=== PATIENT | male | born 1960 | race Caucasian/White ===

== ENCOUNTER 2024-07-09 10:38 | Outpatient (OUT) | payer OTHER, SELFPAY ==
[2024-07-09 11:00] LABS: Basophils Absolute Auto 0.1 10^3/uL (0.0-0.1); Eosinophils Absolute Auto 0.2 10^3/uL (0.0-0.7); Eosinophils Percent Auto 2.7 % (0.9-7.0); Hematocrit 47.8 % (42.0-54.0); Hemoglobin 15.7 g/dL (14.0-18.0); Immature Granulocytes Abs Auto 0.02 10^3/uL (0.00-0.03); Immature Granulocytes Pct Auto 0.2 % (0.0-0.5); Lymphocytes Absolute Auto 1.6 10^3/uL (1.2-3.8); Lymphocytes Percent Auto 19.8 % (20.5-60.0); Mean Corpuscular HGB Conc 32.8 g/dL (29.9-35.2); Mean Corpuscular Hemoglobin 30.4 pg (25.9-34.0); Mean Corpuscular Volume 92.6 fL (80.0-94.0); Monocytes Absolute Auto 0.5 10^3/uL (0.3-0.8); Monocytes Percent Auto 5.8 % (1.7-12.0); Neutrophils Absolute Auto 5.8 10^3/uL (1.4-6.5); Neutrophils Percent Auto 70.5 % (43.0-75.0); Platelet Count 253 10^3/uL (150-450); Red Blood Count 5.16 10^6/uL (4.70-6.10); Red Cell Distribution Width 12.6 % (11.0-15.0); White Blood Count 8.3 10^3/uL (4.0-11.0)
[2024-07-09 12:06] LABS: Alanine Aminotransferase 22 U/L (16-63); Albumin Level 3.7 g/dL (3.4-5.0); Alkaline Phosphatase 87 U/L (46-116); Anion Gap 8.4; Aspartate Amino Transferase 11 U/L (15-37); Bilirubin Total 0.5 mg/dL (0.2-1.0); Calcium 9.1 mg/dL (8.5-10.1); Carbon Dioxide 29.8 mmol/L (21.0-32.0); Chloride 103 mmol/L (98-107); Chol HDL Ratio 3.1; Cholesterol 174 mg/dL (<=200); Estimated GFR (African America >60 (>=60 mL/min/1.73m^2); Estimated GFR (Non-African Ame >60 (>=60 mL/min/1.73m^2); Free T3 3.07 pg/mL (2.18-3.98); Globulin 3.6 g/dL; Glucose 93 mg/dL (74-106); HDL Cholesterol 56 mg/dL (40-60); LDL Cholesterol Calculated 105.2 mg/dL; Potassium 4.2 mmol/L (3.5-5.1); Sodium 137 mmol/L (136-145); Thyroid Stimulating Hormone 1.775 uIU/mL (0.358-3.740); Total Protein 7.3 g/dL (6.4-8.2); Triglycerides 64 mg/dL (<=150); VLDL CHOLESTEROL 12.8 mg/dL
[2024-07-09 12:17] LABS: Prostate Specific Antigen Scrn 2.57 ng/mL (<=4.00)
[2024-07-09 12:20] LABS: Estimated Average Glucose 111 mg/dL; Glycohemoglobin A1C 5.5 % (4.5-6.2)
== END 2024-07-09 10:39 | disposition home or self-care (01) ==
LOC: LAB 10:43
PROVIDERS: PCP Family Medicine; Visit Provider Family Medicine
DX: Z00.00 Encounter for general adult medical examination without abnormal findings (principal); R53.83 Other fatigue; E78.5 Hyperlipidemia, unspecified; R73.09 Other abnormal glucose; Z12.5 Encounter for screening for malignant neoplasm of prostate
CPT/HCPCS: 36415; 80053; 80061; 83036; 84436; 84443; 84481; 85025; G0103

== ENCOUNTER 2024-09-01 09:11 | Emergency (ER) | payer OTHER, SELFPAY ==
[2024-09-01 09:20] VITALS: BP 109/69; O2SAT 93
--- OUTSIDE RECORDS SUMMARY | 2024-09-01 09:22 | XMS_ITS | CCD ---
Author Organization [facility] Care Team Providers Care Transplant Case Manager Name Role Phone PHYSICIAN, DEFAULT Unavailable Unavailable PHYSICIAN, DEFAULT Unavailable Unavailable HOY, DR MILLER Primary Care Unavailable NILL, DR DAVIS Admitting Unavailable NILL, DR DAVIS Consulting Unavailable NILL, DR DAVIS Attending Unavailable LUIS, JOSIAS Consulting Unavailable HOY, DR MILLER Primary Care Unavailable HOY, DR MILLER Attending Unavailable HOY, DR MILLER Admitting Unavailable HOY, DR MILLER Primary Care Unavailable HOY, DR MILLER Consulting Unavailable HOY, DR MILLER Attending Unavailable HOY, DR MILLER Referring Unavailable HOY, DR MILLER Admitting Unavailable HOY, DR MILLER Primary Care Unavailable NILL, DR DAVIS Consulting Unavailable NILL, DR DAVIS Attending Unavailable NILL, DR DAVIS Admitting Unavailable Problems Active Problems Problem Classification Problem Date Documented Da te Episodic/Chronic Anxiety disorders (1 source) Other specified anxiety disorders; Translations: [OTHER SPECIFIED ANXIETY DISORDERS] Onset: 05-23-2021 Chronic Chronic obstructive pulmonary disease and bronchiectasis (1 source) Chronic obstructive pulmonary disease, unspecified; Translations: [COPD UNSPECIFIED] Onset: 05-23-2021 Chronic Other hereditary and degenerative nervous system conditions (1 source) Restless legs syndrome; Translations: [RESTLESS LEGS SYNDROME] Onset: 05-23-2021 Chronic Substance-related disorders (1 source) Nicotine dependence, cigarettes, uncomplicated; Translations: [NICOTINE DEPEND CIGARETTES UNCOMP] Onset: 05-23-2021 Chronic Unclassified (1 source) CONTACT W/AND (SUSP) EXPOS COVID-19; Translations: [CONTACT W/AND (SUSP) EXPOS COVID-19] Onset: 05-16-2021 Past or Other Problems Problem Classification Problem Date Documented Da te Episodic/Chronic Other aftercare (1 source) Other halfway (current) drug therapy; Translations: [OTH PENITENTIARY CURRENT DRUG THERAPY] Onset: 05-23-2021 Episodic Other and unspecified benign neoplasm (3 sources) Personal history of colonic polyps; Translations: [PERSONAL HISTORY OF COLONIC POLYPS] Onset: 05-16-2021 Episodic Other and unspecified benign neoplasm (1 source) Benign neoplasm of transverse colon; Translations: [BENIGN NEOPLASM OF TRANSVERSE COLON] Onset: 05-23-2021 Episodic Other screening for suspected conditions (not mental disorders or infectious disease) (1 source) Encounter for screening for malignant neoplasm of prostate; Translations: [ENC SCREEN MALIG NEOPLASM PROSTATE] Onset: 05-09-2021 Episodic Results Test Name Value Interpretation Reference Range Facil ity Reminderson 05-22-2021 Reminders - From: Andree Perez LPN To: N - Clinical; Sent: 05/22/2021 13:15:11 EDT Show up: 04/16/2026 08:00:00 EDT Subject: colonoscopy recall Due Date/Time: 05/16/2026 08:00:00 EDT Reminder/Recall Patient is due for colonoscopy 05/16/2026 due to history of tubular adenomas. Normal [facility] Outside Colonoscopyon 2020 Outside Colonoscopy [id number] #1.00CD:127 Normal [facility] Pathology Noteon 05-21-2021 Pathology Note [id number]#1.00CD:127 Normal [facility] Facesheeton 05-14-2021 Facesheet [id number] #1.00CD:127 Normal [facility] Lab Reportson 05-14-2021 Lab Reports [id number] #1.00CD:127 Normal [facility] Covid-19 PCR (CVDTB)on SARS-CoV-2 (COVID-19) RNA CHRISSY+probe Ql (Unsp spec) Not detected Normal NOT DETECTED [facility] Comment on above: Result Comment: This test is not yet approved or cleared by the [place] FDA. When there are no FDA-approved or cleared tests available, and other criteria are met, FDA can make tests available under an emergency access mechanism called an Emergency Use Authorization (EUA). The EUA for this test is supported by the [place] of Health and Human Service's (HHS's) declaration that circumstances exist to justify the emergency use of in vitro diagnostics for the detection and/or diagnosis of the virus that causes COVID-19. This EUA will remain in effect (meaning this test can be used) for the duration of the COVID-19 declaration justifying emergency of IVDs, unless it is terminated or revoked by FDA (after which the test may no longer be used). When diagnostic testing is negative, the possibility of a false negative should be considered in the context of a patient's recent exposures and the presence of clinical signs and symptoms consistent with SARS-CoV-2. Performed By: #### [facility] #### [facility] [address] [address] [address] Kris Marie [facility] Letter [facility] May 11, 2021 Ranulfo Morfin, [address] [place] [address] [place] [address] Re: ANA JOHNSON Date of : 1960 Thank you for your referral of Ana Johnson who was seen on consultation on 05/08/2021 for colonoscopy. I have enclosed my consultation note for your review. I will be happy to follow Ana. Sincerely, Ramon Burnett MD General Surgery [facility] Formson 05-10-2021 Forms [id number]#1.00CD:127 [facility] Ambulatory Clinical Summaryo n 05-08-2021 Ambulatory Clinical Summary {[id number] [facility] Physician Referralon 021 Physician Referral [id number] #1.00CD:127 [facility] INSULINon 05-03-2021 Insulin 8.4 uIU/mL Normal 2.6-24.9 [facility] Comment on above: Performed By: #### I NSULIN #### [facility] [address] [place] [address] Dr. Kris Marie CBC AUTO DIFFon 05-02-2021 BASO # 0.1 103/ul Normal 0.0-0.[address] [facility] Comment on above: Performed By: #### C BC #### [facility] [address] [place] [address] Dr. Kris Marie Basophils/100 WBC (Bld) 1.1 % Normal 0.2-2.0 [facility] Comment on above: Performed By: #### C BC #### [facility] [address] [place] [address] Dr. Kris Marie EO # 0.2 103/ul Normal 0.0-0.[address] [facility] Comment on above: Performed By: #### C BC #### [facility] [address] [place] [address] Dr. Kris Marie Eosinophils/100 WBC (Bld) 2.9 % Normal 0.9-7.[address] [facility] Comment on above: Performed By: #### C BC #### [facility] [address] [place] [address] Dr. Kris Marie Erythrocyte distribution width (RBC) [Ratio] 12.9 % Normal 11.0-15.[address] [facility] Comment on above: Performed By: #### C BC #### [facility] [address] [place] [address] Dr. Kris Marie Hematocrit (Bld) [Volume fraction] 47.4 % Normal 42.0-54.0 [facility] Comment on above: Performed By: #### C BC #### [facility] [address] [place] [address] Dr. Kris Marie Hemoglobin (Bld) [Mass/Vol] 15.8 g/dL Normal 14.0-18.[address] [facility] Comment on above: Performed By: #### C BC #### [facility] [address] [place] [address] Dr. Kris Marie IG # 0.02 10e3/ul Normal 0.00-0.[address] [facility] Comment on above: Performed By: #### C BC #### [facility] [address] [place] [address] Dr. Kris Marie IG % 0.3 % Normal 0.0-0.[address] [facility] Comment on above: Performed By: #### C BC #### [facility] [address] [place] [address] Dr. Kris Marie LYMPH # 1.6 103/ul Normal 1.2-3.[address] [facility] Comment on above: Performed By: #### C BC #### [facility] [address] [place] [address] Dr. Kris Marie Lymphocytes/100 WBC (Bld) 22.8 % Normal 20.5-60.[address] [facility] Comment on above: Performed By: #### C BC #### [facility] [address] [place] [address] Dr. Kris Marie MANUAL DIFF REQ NO Normal [facility] Comment on above: Performed By: #### C BC #### [facility] [address] [place] [address] Dr. Kris Marie MCH (RBC) [Entitic mass] 30.7 pg Normal 25.9-34.[address] [facility] Comment on above: Performed By: #### C BC #### [facility] [address] [place] [address] Dr. Kris Marie MCHC (RBC) [Mass/Vol] 33.3 g/dL Normal 29.9-35.[address] [facility] Comment on above: Performed By: #### C BC #### [facility] [address] [place] [address] Dr. Kris Marie MCV (RBC) [Entitic vol] 92.2 fL Normal 80.0-94.[address] [facility] Comment on above: Performed By: #### C BC #### [facility] [address] [place] [address] Dr. Kris Marei MONO # 0.7 103/ul Normal 0.3-0.[address] [facility] Comment on above: Performed By: #### C BC #### [facility] [address] [place] [address] Dr. Kris Marie Monocytes/100 WBC (Bld) 10.3 % Normal 1.7-12.[address] [facility] Comment on above: Performed By: #### C BC #### [facility] [address] [place] [address] Dr. Kris Marie NEUT # 4.5 103/ul Normal 1.4-6.[address] [facility] Comment on above: Performed By: #### C BC #### [facility] [address] [place] [address] Dr. Kris Marie Neutrophils/100 WBC (Bld) 62.6 % Normal 43.0-75.[address] [facility] Comment on above: Performed By: #### C BC #### [facility] [address] [place] [address] Dr. Kris Maire Platelet mean volume (Bld) [Entitic vol] 8.8 fL Critically low 9.5-13.5 [facility] Comment on above: Performed By: #### C BC #### [facility] [address] [place] [address] Dr. Kris Marie PLT 284 103/ul Normal 150-450 [facility] Comment on above: Performed By: #### C BC #### [facility] [address] [place] [address] Dr. Kris Marie RBC 5.14 106/ul Normal 4.70-6.10 [facility] Comment on above: Performed By: #### C BC #### [facility] [address] [place] [address] Dr. Kris Marie WBC 7.2 103/ul Normal 4.0-11.0 [facility] Comment on above: Performed By: #### C BC #### [facility] [address] [place] [address] Dr. Kris Marie GLYCOHEMOGLOBIN A1Con 2020 ADA RECOMMENDATION ADA THERAPEUTIC TARGET 6.0 - 7.0 ACTION SUGGESTED > 7.[address] [facility] Comment on above: Performed By: #### A 1C #### [facility] [address] [address] [address] Kris Marie Glucose [Mass/Vol] 105 mg/dL Normal [facility] Comment on above: Performed By: #### A 1C #### [facility] [address] [address] [address] Kris Marie HbA1c (Bld) [Mass fraction] 5.3 % Normal <=6.[address] [facility] Comment on above: Performed By: #### A 1C #### [facility] [address] [address] [address] Kris Marie LIPID PROFILEon 05-02-2021 CHOL-HDL RATIO NORM SEE BELOW Normal [facility] Comment on above: Result Comment: 3.3 - 4.4 LOW RISK 4.4 - 7.1 AVERAGE RISK 7.1 - 11.0 MODERATE RISK >11.0 HIGH RISK Performed By: #### C MP, URIC, LIPID #### [facility] [address] [place] [address] Dr. Kris Marie Cholesterol [Mass/Vol] 187 mg/dL Normal <=[address] [facility] Comment on above: Performed By: #### C MP, URIC, LIPID #### [facility] [address] [place] [address] Dr. Kris Marie Cholesterol in HDL [Mass/Vol] 57 mg/dL Normal [facility] Comment on above: Performed By: #### C MP, URIC, LIPID #### [facility] [address] [address] [address] Kris Marie Cholesterol in LDL [Mass/Vol] 115.6 mg/dL Normal [facility] Comment on above: Performed By: #### C MP, URIC, LIPID #### [facility] [address] [place] [address] Dr. Kris Marie Cholesterol.total/Cho lesterol in HDL [Mass ratio] 3.3 {ratio} Normal [facility] Comment on above: Performed By: #### C MP, URIC, LIPID #### [facility] [address] [address] [address] Kris Marie HDL NORMAL > or = 60 mg/dl - LOW CARDIOVASCULAR RISK <40 mg/dl - HIGH CARDIOVASCULAR RISK Normal [facility] Comment on above: Performed By: #### C MP, URIC, LIPID #### [facility] [address] [address] [address] Kris Marie LDL CALC NORMAL SEE BELOW Normal [facility] Comment on above: Result Comment: <100 mg/dl OPTIMAL 100 - 129 mg/dl NEAR OR ABOVE OPTIMAL 130 - 159 mg/dl BORDERLINE HIGH 160 - 189 mg/dl HIGH >190 mg/dl VERY HIGH Performed By: #### C MP, URIC, LIPID #### [facility] [address] [address] [address] Kris Marie Triglyceride [Mass/Vol] 72 mg/dL Normal <=[address] [facility] Comment on above: Performed By: #### C MP, URIC, LIPID #### [facility] [address] [address] [address] Kris Marie VLDL CALC 14.4 mg/dL Normal [facility] Comment on above: Performed By: #### C MP, URIC, LIPID #### [facility] [address] [place] [address] Dr. Kris Marie PROF 14(COMP METB)on 021 Albumin [Mass/Vol] 4.3 g/dL Normal 3.5-5.0 [facility] Comment on above: Performed By: #### C MP, URIC, LIPID #### [facility] [address] [place] [address] Dr. Kris Marie Albumin/Globulin [Mass ratio] 1.1 {ratio} Normal [facility] Comment on above: Performed By: #### C MP, URIC, LIPID #### [facility] [address] [place] [address] Dr. Kris Marie ALP [Catalytic activity/Vol] 84 U/L Normal 38-[address] [facility] Comment on above: Performed By: #### C MP, URIC, LIPID #### [facility] [address] [place] [address] Dr. Kris Marie ALT [Catalytic activity/Vol] 22 U/L Normal 21-[address] [facility] Comment on above: Performed By: #### C MP, URIC, LIPID #### [facility] [address] [place] [address] Dr. Kris Marie Anion gap [Moles/Vol] 13.2 mmol/L Normal [facility] Comment on above: Performed By: #### C MP, URIC, LIPID #### [facility] [address] [place] [address] Dr. Kris Marie AST [Catalytic activity/Vol] 15 U/L Critically low 17-[address] [facility] Comment on above: Performed By: #### C MP, URIC, LIPID #### [facility] [address] [place] [address] Dr. Kris Marie Bilirubin [Mass/Vol] 0.5 mg/dL Normal 0.2-1.[address] [facility] Comment on above: Performed By: #### C MP, URIC, LIPID #### [facility] [address] [place] [address] Dr. Kris Marie Calcium [Mass/Vol] 9.7 mg/dL Normal 8.4-10.2 [facility] Comment on above: Performed By: #### C MP, URIC, LIPID #### [facility] [address] [place] [address] Dr. Kris Marie Chloride [Moles/Vol] 102 mmol/L Normal 98-[address] [facility] Comment on above: Performed By: #### C MP, URIC, LIPID #### [facility] [address] [place] [address] Dr. Kris Marie CO2 [Moles/Vol] 28.4 mmol/L Normal 22.0-30.0 [facility] Comment on above: Performed By: #### C MP, URIC, LIPID #### [facility] [address] [place] [address] Dr. Kris Marie Creatinine [Mass/Vol] 1.02 mg/dL Normal 0.66-1.[address] [facility] Comment on above: Performed By: #### C MP, URIC, LIPID #### [facility] [address] [address] [address] Kris Marie EGFR-AF SAMOAN >60 Normal >=60 [facility] Comment on above: Performed By: #### C MP, URIC, LIPID #### [facility] [address] [address] [address] Kris Marie EGFR-NON AF SAMOAN >60 Normal >=60 [facility] Comment on above: Performed By: #### C MP, URIC, LIPID #### [facility] [address] [address] [address] Kris Marie Globulin (S) [Mass/Vol] 3.9 g/dL Normal [facility] Comment on above: Performed By: #### C MP, URIC, LIPID #### [facility] [address] [address] [address] Kris Marie Glucose [Mass/Vol] 104 mg/dL Normal 74-106 [facility] Comment on above: Performed By: #### C MP, URIC, LIPID #### [facility] [address] [address] [address] Kris Marie Potassium [Moles/Vol] 4.6 mmol/L Normal 3.4-5.[address] [facility] Comment on above: Performed By: #### C MP, URIC, LIPID #### [facility] [address] [address] [address] Kris Marie Protein [Mass/Vol] 8.2 g/dL Normal 6.1-8.2 [facility] Comment on above: Performed By: #### C MP, URIC, LIPID #### [facility] [address] [address] [address] Kris Marie Sodium [Moles/Vol] 139 mmol/L Normal 137-145 [facility] Comment on above: Performed By: #### C MP, URIC, LIPID #### [facility] [address] [address] [address] Kris Marie Urea nitrogen [Mass/Vol] 19.0 mg/dL Normal 9.0-20.[address] [facility] Comment on above: Performed By: #### C MP, URIC, LIPID #### [facility] [address] [place], [place] [address] Dr. Kris Marie Urea nitrogen/Creatinine [Mass ratio] 18.6 mg/mg Normal [facility] Comment on above: Performed By: #### C MP, URIC, LIPID #### [facility] [address] [place], [place] [address] Dr. Kris Marie URIC ACID SERUMon 05-02-2021 Urate [Mass/Vol] 6.1 mg/dL Normal 3.5-8.5 [facility] Comment on above: Performed By: #### C MP, URIC, LIPID #### [facility] [address] [id number] Kris Marie Encounters Encounter Date Encounter Type Care Provider Facility Start: 04-12-[address] RANULFO MORFIN Facility :[facility] Start: 05-16-2021 Encounter for prepro cedural laboratory examination DR RAMON BURNETT [facility] Start: 05-16-2021 End: 05-16-[address] RANULFO MORFNI Facility:[facility] Start: 05-12-2021 End: 05-13-[address] RANULFO MORFIN Facility:[facility] Start: 05-12-2021 End: 05-13-2021 Encounter for preprocedural laboratory examination DR RANULFO MORFIN Facility:[facility] Start: 05-09-2021 Encounter for genera l adult medical examination without abnormal findings DR RANULFO MORFIN [facility] Start: 05-02-2021 End: 05-03-[address] RANULFO MORFIN Facility:[facility] Start: 05-02-2021 End: 05-03-2021 Encounter for general adult medical examination without abnormal findings DR RANULFO MORFIN Facility:[facility] Start: 03-19-2017 End: 03-20-2017 Ambulatory DEFAULT PHYSICIAN Facility:[facility] Procedures Date Procedure Procedure Detail Performing Clinician Start: 05-02-[address] VASU MORFIN Comment on above: Performed By: #### P SASC #### [facility] [address] [address] [address] Kris Marie Payers Date Payer Category Payer Unknown [id number] 2.16.84 [id number] 1960 Unknown [id number] 2.16.84 [id number] 1960 Unknown [id number] 2.16.84 [id number] 1960 Unknown [id number] 2.16.84 [id number] 1957 Self-pay [id number] 1957 Unknown [id number] Unknown Clinical Note 05-16-2021 Note Date & Type Note Facility 05-16-2021 Note OPERATIVE NOTE OPERATION DATE: 05/16/2021 PREOPERATIVE DIAGNOSIS: Personal history of colon polyps. POSTOPERATIVE DIAGNOSIS: Colon polyps x3 transverse colon, sigmoid and rectal. PROCEDURE NAME: Colonoscopy to cecum with cold snare polypectomy x3. SURGEON: Ramon Burnett MD ANESTHESIA: Monitored anesthesia care. ESTIMATED BLOOD LOSS: Less than 2 mL. INDICATIONS AND CONSENT: Patient is a 60-year-old male with personal history of colon polyps. Indications, risks, benefits and alternatives of proceeding with colonoscopy were explained extensively to the patient including the risks of bleeding, colon perforation or anesthetic complications. All of his questions were answered. Informed consent was obtained. PROCEDURE: Patient brought to the operating room and placed in the left lateral decubitus position. Monitored anesthesia care was provided. Rectal exam was performed which showed no masses or blood. The scope was inserted into the anal canal under direct visualization and was advanced. With the aid of abdominal compression, it was advanced to the cecum where cecal markings were clearly identified. There was noted some liquid stool and mucus throughout the colon that was partially irrigated clear but did obscure some of the mucosal lining. Upon withdrawal of the scope, mucosal surfaces were carefully examined. There was noted be a 4 mm sessile polyp in the transverse colon that was removed with cold snare but it was not retrieved. In the sigmoid colon, there was a 7 mm sessile polyp that was friable. This was removed with cold snare within good hemostasis. Within the rectum, there was a 3 mm polyp that was removed with cold snare as well. The scope was retroflexed in the anal canal. There were noted to be some prominent rectal veins. No significant hemorrhoidal disease. The scope was then withdrawn. Patient tolerated the procedure well and was sent to Recovery Room in good condition. cc: Ranulfo Morfin MD [facility] Signed and Approved by: DR RAMON BURENTT . 05/20/2021 12:48:00 [facility] Clinical Note 05-08-2021 Note Date & Type Note Facility 05-08-2021 Note Chief Complaint consultation for colonoscopy HPI Staff 60 year old male presents on consultation from Dr. Morfin for colonoscopy. History of colon polyps. Believes last colonoscopy was completed 5-6 years ago at [facility]. Denies abdominal or rectal pain. No rectal bleeding or change in bowel habits. Denies nausea or vomiting. No unexplained weight loss. No known family history of colon cancer. History of Present Illness 60 yo male with h/o COPD, cervical disc disease; referred for surveillance colonoscopy due to personal h/o colon polyps. last colonoscopy reportedly 6-7 years ago at [facility]; denies change in bms or blood in stools; on baby asa daily, no NSAID use, no SBE prophylaxis; no fmhx of GI malignancy or IBD. smokes 1/2 ppd. Review of Systems PHQ Score Initial Depression Screen Score: 0 ROS - Provider Constitutional: no fever, no sweats, no weight loss. Eyes: no glasses, no blurred vision, no visual loss. ENMT: no dentures, no hoarseness, no swallowing difficulties, no hearing loss, no ear infection(s), no nose bleeds. Cardiovascular: normal blood pressure, no chest pain, regular heartbeat, no heart murmur. Respiratory: no shortness of breath, no cough, no asthma, no wheezing. Gastrointestinal: no nausea, no vomiting, no diarrhea, no constipation, no blood in stool, no change in bowel habits, no abdominal pain, no hepatitis. Genitourinary: no kidney stones, no urine infection, no dysuria. Musculoskeletal: no pain, no weakness. Skin: no changing moles, no rash, no skin lumps. Neurologic: no seizures, no epilepsy, no headache. Psychiatric: no emotional or psychiatric problem. Heme/Lymph: no bleeding problems, no anemia, no blood clots, no transfusions. Allergy/Immunologic: no swollen lymph nodes/glands, no IV drug abuse. Other: Additional ROS info: Except as noted in the above Review of Systems and in the History of Present Illness, all other systems have been reviewed and are negative or noncontributory. Physical Exam Vitals & Measurements HR: 80(Peripheral) RR: 16 BP: 124/82 HT: 165.1 cm HT: 165.1 cm WT: 69.3 kg WT: 69.3 kg BMI: 25.42 HEENT: normal conjunctiva, sclera clear, no scleral icterus, EOM intact, PERRLA, oral mucosa moist without lesions. Neck: trachea midline, no mass, symmetric, no thyromegaly or nodules, no adenopathy Respiratory: lungs CTA, respirations non labored. Cardiovascular: regular rate and rhythm, no murmur, no pedal edema or varicosities. Gastrointestinal: soft, non distended, no tenderness, no masses, no palpable hernias, diastasis recti no, no hepatosplenomegaly; normal bs Lymphatic: no cervical adenopathy, no axillary adenopathy, no inguinal adenopathy. Musculoskeletal: normal gait, digits and nails without infection, nodes, cyanosis, clubbing. Skin: no rashes, no lesions, no ulcers, no subcutaneous nodules, induration. Psychiatric/Neuro: oriented to time, place, person, judgement normal, affect appropriate for age, insight intact, no focal deficits. Tests: , review of old records completed, Discussed surgical options, risks, and possible complications with patient. Assessment/Plan 1. Personal history of colonic polyps (Z86.010: Personal history of colonic polyps) plan colonoscopy under anesthesia, informed consent obtained. Follow-up No qualifying data available Problem List/Past Medical History Ongoing Cervical disc disease Chronic obstructive pulmonary disease Colon polyp Lumbar disc disease Personal history of colonic polyps Restless leg syndrome Sciatica Historical No qualifying data Procedure/Surgical History Colonoscopy. Medications aspirin 81 mg Oral EC Tab, 81 mg= 1 tab(s), Oral, Daily ropinirole 4 mg oral tablet, 4 mg= 1 tab(s), Oral, BID Symbicort 160/4.5 inhalation aerosol with adapter, 2 puff(s), Inhalation, BID Ventolin HFA 90 mcg/inh Aerosol, 2 puff(s), Inhalation, QID, PRN Allergies No Known Allergies No Known Medication Allergies Social History Alcohol Current, Beer, Wine, Liquor, 3-5 times per week, 05/08/2021 Substance Abuse Current, Marijuana, 1-2 times per month, 05/08/2021 Tobacco 10 or more cigarettes (1/2 pack or more)/day in last 30 days Tobacco Use:. Cigarettes, .5 per day. Started age 11.0 Years., 05/08/2021 Family History Cardiac arrest: Father. Ovarian cancer: Sister. Primary malignant neoplasm of female breast: Mother and Sister. [facility] Comment on above: Result Comment: Elec tronically Signed By: LA MORAN, Ramon Toussaint\Date and Time Signed: 05/08/21 13:50 EDT Summary Purpose Family History No Family History Records FoundNo Family History Records FoundNo Family History Records Found Advance Directives No Advanced Directives Records FoundNo Advanced Directives Records FoundNo Advanced Directives Records Found Additional Source Comments (unrecognized sect ion and content) No Status Records FoundNo Status Records FoundNo Status Records Found INFORMATION SOURCE (unrecogn ized section and content) DATE CREATED AUTHOR 01/28/2018 [facility] DATE CREATED AUTHOR AUTHOR'S ORGANIZ ATION 05/25/2021 [facility] DATE CREATED AUTHOR AUTHOR'S ORGANIZ ATION 04/13/2022 [facility] FOR RECORDS PERTAINING TO PATIENTS WHO ARE OR HAVE BEEN ENROLLED IN A CHEMICAL DEPENDENCY/SUBSTANCEABUSE PROGRAM, SOME INFORMATION MAY BE OMITTED. This clinical summary was aggregated from multiple sources. Caution should be exercised in using it in the provision of clinical care. This summary normalizes information from multiple sources, and as a consequence, information in this document may materially change the coding, format and clinical context of patient data. In addition, data may be omitted in some cases. CLINICAL DECISIONS SHOULD BE BASED ON THE PRIMARY CLINICAL RECORDS. [facility]. provides no warranty or guarantee of the accuracy or completeness of information in this document.
[2024-09-01 09:23] VITALS: BP 109/69; PULSE 83; TEMP 38.2; O2SAT 94; BMI 25.0
[2024-09-01 09:30] VITALS: BP 124/68; PULSE 80; O2SAT 93
--- NOTE | 2024-09-01 09:47 | XR_ITS ---
The [address] [address] Patient Name: ANA JOHNSON MRN: [id number] date: 1960 Sex: M Assigned Patient Location: ER Current Patient Location: ER Accession/Order Number: [id number] Exam Date: 09/01/2024 10:14 Report Date: 09/01/2024 10:51 At the request of: CHRISTINA DURÁN Procedure: XR chest 2V EXAMINATION: XR chest 2V HISTORY: cough COMPARISON: Report from chest x-ray 01/16/2016 (no images) FINDINGS: LUNGS: Small dense nodule within lateral left lung base favoring a granuloma. Lungs are otherwise clear. VASCULATURE: No increased pulmonary vasculature. PLEURA: No pneumothorax, effusion, or pleural thickening. CARDIAC: No cardiomegaly or cardiac silhouette abnormality. MEDIASTINUM: No visible mass or adenopathy. BONES: No fracture or visible bone lesion. OTHER: Negative. XR/XR chest 2V IMPRESSION: 1. No acute cardiopulmonary process. 2. Suspect calcified granuloma within lateral left lung base; also described on the 2016 report, which favors a benign etiology. Electronically authenticated by: NITIN MARCELO Date: 09/01/2024 10:51
--- NOTE | 2024-09-01 09:47 | ECG_ITS ---
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
[2024-09-01 09:56] LABS: Influenza Virus A Antigen Positive; Internal Control Within Normal Limits; Respiratory Syncytial Virus Not Detected (NOT DETECTE)
[2024-09-01] MEDS: IPRATROPIUM/ALBUTEROL SULFATE 3 ML AMPUL.NEB IH (09:56)
[2024-09-01 09:57] LABS: Influenza Virus B Antigen Negative; Internal Control Within Normal Limits
[2024-09-01 09:59] VITALS: PULSE 88; O2SAT 92
[2024-09-01 10:00] VITALS: PULSE 85; O2SAT 98
--- NOTE | 2024-09-01 10:03 | ED_ITS ---
HPI - SOB/Dyspnea General Chief Complaint: Shortness of Breath/Dyspnea Stated Complaint: SOB COUGHING WEAKNESS CHILLS FEVER Time Seen by Provider: 09/01/24 09:14 Source: patient Mode of arrival: walk-in History of Present Illness HPI Narrative: Patient to ED complaining of shortness of breath and not feeling well. Patient's had fevers chills and bodyaches as well as a headache and fatigue. He is also had generalized weakness. Patient is unsure if he has COPD or emphysema but does have an inhaler at home. reports that she gave him a breathing treatment at home from her nebulizer machine which seemed to help a little bit. His oxygen saturations been running in the low 90s and normally he is 96 or 97. On arrival he was 92% on room air and 100.7 on his temperature. He is not tachypneic or in any respiratory distress. He states he is breathing okay until he gets into a coughing fit and then it feels like he cannot catch his breath. states she has not been sick recently but was a few weeks ago. Patient denies chest pain. Patient okay with flu swab, declined COVID swab. He is alert and oriented answering questions appropriately no acute distress. Patient states it suddenly hit him on Friday night Related Data Home Medications ?Medication ?Instructions ?Recorded ?Confirmed albuterol (refill) 90 90 mcg inhalation Q6H PRN 09/01/24 09/01/24 mcg/actuation aerosol inhaler wheezing/sob gabapentin 300 mg capsule 300 mg PO BID 09/01/24 09/01/24 ropinirole 4 mg tablet 4 mg PO BID 09/01/24 09/01/24 Previous Rx's ?Medication ?Instructions ?Recorded oseltamivir 75 mg capsule (Tamiflu) 75 mg PO BID 5 days #10 caps 09/01/24 Allergies Allergy/AdvReac Type Severity Reaction Status Date / Time No Known Drug Allergies Allergy Verified 09/01/24 09:22 Review of Systems ROS Status of ROS 10 or more systems reviewed and unremark able except as noted in history and below PFSH PFSH Social History Little interest or pleasure in doing things: not at all Feeling down, depressed, or hopeless: not at all Exam Narrative Exam Narrative: Time Seen: [] Vital Signs: [Per nurse's notes.] General: [Alert] fever Skin: [Warm, dry, no rash.] Head: [Normocephalic, atraumatic.] Neck: [Supple, trachea midline.] Eye: [Pupils are equal, round and reactive to light, extraocular movements are intact, normal conjunctiva.] Ears, nose, mouth and throat: oral mucosa moist. Cardiovascular: [Regular rate and rhythm, no murmur.] Respiratory: [Mildly diminished breath sounds bilaterally no acute respiratory distress, respirations are non-labored, breath sounds are equal.] Chest wall: [No tenderness, no deformity.] Gastrointestinal: [Soft, nontender, non distended, normal bowel sounds.] MSK: 5 out of 5 muscle strength x 4 extremities no calf pain or edema Lymphatics: [No lymphadenopathy.] Psychiatric: [Cooperative, appropriate mood & affect.] Neurological: [Alert and oriented to person, place, time, and situation, no focal neurological deficit observed.] Constitutional Vital Signs, click to edit/add: Last Vital Signs Temp 100.7 F H 09/01/24 09:23 Pulse 85 09/01/24 10:00 Resp 14 09/01/24 10:00 BP 124/68 09/01/24 09:30 Pulse Ox 98 09/01/24 10:00 O2 Del Method Room Air 09/01/24 09:59 Course Vital Signs Vital signs: Vital Signs Blood Pressure 109/69 09/01/24 09:20 Pulse Oximetry 93 L 09/01/24 09:20 Temperature 100.7 F H 09/01/24 09:23 Pulse Rate 85 09/01/24 10:00 Respiratory Rate 14 09/01/24 10:00 Blood Pressure 124/68 09/01/24 09:30 Pulse Oximetry 98 09/01/24 10:00 Oxygen Delivery Method Room Air 09/01/24 09:59 MDM - SOB/Dyspnea MDM Narrative Medical decision making narrative: Patient's labs were positive for influenza A. Patient's chest x-ray does not show a superimposed pneumonia. He does have a low-grade fever here but is feeling better after some fluids and Toradol. Patient is still in the window for Tamiflu treatment. I did happen to be talking to Dr. Dooley the primary doctor about a different patient so I updated him that this patient will be sent home with Tamiflu. He is not hypoxic but he does have flu A. Dr. Dooley states he will see him in the office if needed. Patient is stable and comfortable with care plan for home. Return to ED if worsening symptoms hypoxia difficulty breathing or any other concerns. Differential Diagnosis Differential diagnosis: Likely acute exacerbation of chronic obstructive airways disease, community acquired pneumonia, asthma with exacerbation and other (Flu viral syndrome COPD exacerbation) Lab Data Attestation: I reviewed the patient's lab results. Labs: Lab Results 09/01/24 09/01/24 Range/Units 09:35 09:56 WBC 9.6 (4.0-11.0) 10^3/uL RBC 4.52 L (4.70-6.10) 10^6/uL Hgb 14.1 (14.0-18.0) g/dL Hct 41.8 L (42.0-54.0) % MCV 92.5 (80.0-94.0) fL MCH 31.2 (25.9-34.0) pg MCHC 33.7 (29.9-35.2) g/dL RDW 13.0 (11.0-15.0) % Plt Count 164 (150-450) 10^3/uL MPV 9.4 L (9.5-13.5) fL Seg Neuts % (Manual) 88.0 H (43.0-75.0) Band Neutrophils % 1.0 (0-5) % Lymphocytes % (Manual) 6.0 L (20.5-60.0) % Monocytes % (Manual) 5.0 (1.7-12.0) % Eosinophils % (Manual) 0.0 L (0.9-7.0) % Basophils % (Manual) 0.0 L (0.2-2.0) % Neutrophils # (Manual) 8.44 H (1.4-6.5) 10^3/uL Band Neutrophils # 0.1 (0.0-0.3) 10^3/uL Lymphocytes # (Manual) 0.57 L (1.20-3.80) 10^3/uL Monocytes # (Manual) 0.48 (0.30-0.80) 10^3/uL Eosinophils # (Manual) 0.00 (0.00-0.70) 10^3/uL Basophils # (Manual) 0.00 (0.00-0.10) 10^3/uL Sodium 132 L (136-145) mmol/L Potassium 4.3 (3.5-5.1) mmol/L Chloride 98 (98-107) mmol/L Carbon Dioxide 25.0 (21.0-32.0) mmol/L Anion Gap 13.3 BUN 26.0 H (7.0-18.0) mg/dL Creatinine 1.11 (0.70-1.30) mg/dL Est GFR ( Amer) >60 (>=60 mL/min/1.73m^2) Est GFR (Non-Af Amer) >60 (>=60 mL/min/1.73m^2) BUN/Creatinine Ratio 23.4 Glucose 105 (74-106) mg/dL Calcium 8.4 L (8.5-10.1) mg/dL Total Bilirubin 0.6 (0.2-1.0) mg/dL AST 43 H (15-37) U/L ALT 26 (16-63) U/L Alkaline Phosphatase 76 (46-116) U/L Total Protein 7.0 (6.4-8.2) g/dL Albumin 3.6 (3.4-5.0) g/dL Globulin 3.4 g/dL Albumin/Globulin Ratio 1.1 Influenza Type A Ag Positive A Influenza Type B Ag Negative RSV Antigen Not detected (NOT DETECTE) Imaging Data Chest x-ray: Radiologist's impression: ITS Impressions Chest X-Ray 09/01/24 09:47 IMPRESSION: 1. No acute cardiopulmonary process. 2. Suspect calcified granuloma within lateral left lung base; also described on the 2016 report, which favors a benign etiology. Electronically authenticated by: NITIN MARCELO Date: 09/01/2024 10:51 ECG Data Attestation: I personally reviewed and interpreted this ECG as follows: Interpretation: EKG INTERPRETATION Time: [] 922 Rate: [] 82 Rhythm: _ [] Normal sinus rhythm ST segments: _ [] No acute ST elevation or depression T waves: _ [] Ectopy: _ [] P wave/OK interval: _ [] QRS interval: _ [] QT interval: _ [] Comparison: _ [] Comparison EKG date: [] Performed by: [self] Discharge Plan Discharge Chief Complaint: Shortness of Breath/Dyspnea Clinical Impression: Influenza A Patient Disposition: Home, Self-Care Time of Disposition Decision: 11:01 Condition: Fair Mode of Transportation: Private Vehicle Prescriptions / Home Meds: New oseltamivir [Tamiflu] 75 mg capsule 75 mg PO BID 5 Days Qty: 10 0RF No Action gabapentin 300 mg capsule 300 mg PO BID ropinirole 4 mg tablet 4 mg PO BID albuterol (refill) 90 mcg/actuation aerosol 90 mcg inhalation Q6H PRN (Reason: wheezing/sob) Print Language: Filipino Instructions: Influenza (ED) Referrals: Ranulfo Dooley MD [Primary Care Provider] - 1 week Discharge Date/Time: 09/01/24 11:27
[2024-09-01] MEDS: KETOROLAC TROMETHAMINE 30 MG/ML VIAL IVP (10:05)
[2024-09-01] MEDS: 0.9 % SODIUM CHLORIDE 500 ML IV (10:05)
[2024-09-01 10:27] LABS: Hematocrit 41.8 % (42.0-54.0); Hemoglobin 14.1 g/dL (14.0-18.0); Mean Corpuscular HGB Conc 33.7 g/dL (29.9-35.2); Mean Corpuscular Hemoglobin 31.2 pg (25.9-34.0); Mean Corpuscular Volume 92.5 fL (80.0-94.0); Mean Platelet Volume 9.4 fL (9.5-13.5); Platelet Count 164 10^3/uL (150-450); Red Blood Count 4.52 10^6/uL (4.70-6.10); White Blood Count 9.6 10^3/uL (4.0-11.0)
[2024-09-01 10:48] LABS: Alanine Aminotransferase 26 U/L (16-63); Albumin Globulin Ratio 1.1; Albumin Level 3.6 g/dL (3.4-5.0); Alkaline Phosphatase 76 U/L (46-116); Anion Gap 13.3; Aspartate Amino Transferase 43 U/L (15-37); BUN Creatinine Ratio 23.4; Bilirubin Total 0.6 mg/dL (0.2-1.0); Calcium 8.4 mg/dL (8.5-10.1); Chloride 98 mmol/L (98-107); Estimated GFR (African America >60 (>=60 mL/min/1.73m^2); Estimated GFR (Non-African Ame >60 (>=60 mL/min/1.73m^2); Globulin 3.4 g/dL; Glucose 105 mg/dL (74-106); Potassium 4.3 mmol/L (3.5-5.1); Sodium 132 mmol/L (136-145)
[2024-09-01 10:52] LABS: Band Neutrophils Absolute 0.1 10^3/uL (0.0-0.3); Lymphocytes Absolute Manual 0.57 10^3/uL (1.20-3.80); Monocytes Absolute Manual 0.48 10^3/uL (0.30-0.80); Segmented Neut Absolute Manual 8.44 10^3/uL (1.4-6.5)
== END 2024-09-01 11:27 | disposition home or self-care (01) ==
PROVIDERS: Emergency Provider Emergency Medicine; PCP Family Medicine
DX: J10.1 Influenza due to other identified influenza virus with other respiratory manifestations (principal); R50.9 Fever, unspecified
CPT/HCPCS: 36415; 71046; 80053; 85007; 85027; 87420; 87804; 87811; 93005; 94640; 96374; 99285; J1885